=== PATIENT | male | born 2000 | race Hispanic/Latino ===

== ENCOUNTER 2020-08-03 17:42 | Emergency (ER) | payer OTHER, SELFPAY ==
--- NOTE | 2020-08-03 18:19 | EDPHYS ---
Physician Documentation [facility] Name: Jono Hathaway III Age: 20 yrs Sex: Male : 2000 Arrival Date: 08/03/2020 Time: 17:44 Bed 7 Private MD: ED Physician Bennett Menendez HPI: 08/03 18:14 This 20 yrs old Male presents to ER via Ambulatory with complaints of jmm Laceration To Forehead. 18:14 The patient has a laceration related to: facial laceration. Onset: The symptoms/episode jmm began/occurred acutely, 18 hour(s) ago. Associated signs and symptoms: Pertinent negatives: loss of consciousness, numbness distal to injury, suspected foreign body. This is a 20 year old male with no chronic medical conditions that presents to the ED with complaints of laceration to his left eyebrow which occurred after a sparring match at 9 pm last night. Denies LOC, vomiting, seizure like activity. . Historical: - Allergies: 17:49 No Known Allergies; jd3 - Home Meds: 17:49 None [Active]; jd3 - PMHx: 17:49 None; jd3 - PSHx: 17:49 Appendectomy; jd3 - Immunization history:: Adult Immunizations up to date. - Social history:: Smoking status: Patient reports the use of cigarette tobacco products, denies chronic smoking, but will smoke occasionally. ROS: 18:14 Constitutional: Negative for fever, chills, and weight loss, Cardiovascular: Negative jmm for chest pain, palpitations, and edema, Respiratory: Negative for shortness of breath, cough, wheezing, and pleuritic chest pain. 18:14 Skin: Positive for laceration(s). 18:14 Neuro: Negative for loss of consciousness, seizure activity. 18:14 All other systems are negative. Exam: 18:14 Constitutional: This is a well developed, well nourished patient who is awake, alert, jmm and in no acute distress. 18:14 Eyes: EOMI, no conjunctival erythema appreciated ENT: Moist Mucus Membranes Neck: Trachea midline, Supple Chest/axilla: Normal chest wall appearance and motion. Cardiovascular: Regular rate and rhythm. No edema appreciated Respiratory: Normal respirations, no respiratory distress appreciated Abdomen/GI: Non distended, soft Back: Normal ROM Skin: General appearance color normal MS/ Extremity: Moves all extremities, no obvious deformities appreciated, no edema noted to the lower extremities Neuro: Awake and alert, normal gait Psych: Behavior is normal, Mood is normal, Patient is cooperative and pleasant 18:14 Head/face: healing laceration noted to the left eyebrow. 18:14 Head/face: no battles signs, no raccoon eyes. Vital Signs: 17:49 BP 123 / 51; Pulse 67; Resp 17 S; Temp 98.0(O); Pulse Ox 99% on R/A; Weight 86.18 kg jd3 (R); Height 5 ft. 8 in. (172.72 cm) (R); Pain 0/10; 17:49 Body Mass Index 28.89 (86.18 kg, 172.72 cm) jd3 MDM: 18:07 Patient medically screened. [facility] 18:14 Data reviewed: vital signs, nurses notes. Counseling: I had a detailed discussion with simone the patient and/or guardian regarding: the historical points, exam findings, and any diagnostic results supporting the discharge/admit diagnosis, lab results, the need for outpatient follow up. Medical screen evaluation completed. [facility] condition absent. Administered Medications: No medications were administered Disposition: 08/03/20 18:18 Discharged to Home as Medical Screen. Impression: Left Eyebrow laceration. - Condition is Stable. - Discharge Instructions: Nonsutured Laceration Care, Facial Laceration. - Medication Reconciliation Form, Thank You Letter, Antibiotic Education, Prescription Opioid Use form. - Follow up: Private Physician; When: 2 - 3 days; Reason: Recheck today's complaints, Continuance of care, Re-evaluation by your physician. Addendum: 08/05/2020 14:35 Co-signature as Attending Physician, Bennett Menendez MD I agree with the assessment and k dr plan of care. Signatures: Bennett Menendez MD MD kdr Mickail, Joel, PA PA jm Blane Torres RN RN jl7 Morgan Patrick RN RN jd3 Corrections: (The following items were deleted from the chart) 08/03 18:27 18:18 08/03/2020 18:18 Discharged to Home as Medical Screen. Impression: Left Eyebrow jl7 laceration. Condition is Stable. Forms are Medication Reconciliation Form, Thank You Letter, Antibiotic Education, Prescription Opioid Use. Follow up: Private Physician; When: 2 - 3 days; Reason: Recheck today's complaints, Continuance of care, Re-evaluation by your physician. simone
--- NOTE | 2020-08-03 18:19 | ER ---
Nurse's Notes [facility] Name: Jono Hathaway III Age: 20 yrs Sex: Male : 2000 Arrival Date: 08/03/2020 Time: 17:44 Bed 7 Private MD: Diagnosis: Left Eyebrow laceration Presentation: 08/03 17:47 Chief complaint: Patient states: "I was sparing and I got hit pretty good and I think I jd3 need stitches on this cut above my right eye.". Coronavirus screen: At this time, the client does not indicate any symptoms associated with coronavirus-19. Ebola Screen: Patient negative for fever greater than or equal to 101.5 degrees Fahrenheit, and additional compatible Ebola Virus Disease symptoms. Complicating Factors: There are no complicating factors for this patient. Initial Sepsis Screen: Does the patient meet any 2 criteria? No. Patient's initial sepsis screen is negative. Does the patient have a suspected source of infection? No. Patient's initial sepsis screen is negative. Risk Assessment: Do you want to hurt yourself or someone else? Patient reports no desire to harm self or others. Onset of symptoms was August 03, 2020. 17:47 Method Of Arrival: Ambulatory jd3 17:47 Acuity: ROBERTO 3 jd3 Historical: - Allergies: 17:49 No Known Allergies; jd3 - Home Meds: 17:49 None [Active]; jd3 - PMHx: 17:49 None; jd3 - PSHx: 17:49 Appendectomy; jd3 - Immunization history:: Adult Immunizations up to date. - Social history:: Smoking status: Patient reports the use of cigarette tobacco products, denies chronic smoking, but will smoke occasionally. Screenin:00 Abuse screen: Denies threats or abuse. Denies injuries from another. Nutritional jl7 screening: No deficits noted. Tuberculosis screening: No symptoms or risk factors identified. 18:00 Fall Risk None identified. jl7 Assessment: 18:00 General: Appears in no apparent distress. uncomfortable, Behavior is calm, cooperative, jl7 appropriate for age. Pain: Denies pain. Neuro: Level of Consciousness is awake, alert, obeys commands, Oriented to person, place, time, situation. Cardiovascular: Patient's skin is warm and dry. Respiratory: Airway is patent Respiratory effort is even, unlabored, Respiratory pattern is regular, symmetrical. Musculoskeletal: Swelling absent. Injury Description: Laceration sustained to middle aspect of left eyebrow and outer aspect of left eyebrow is clean, 2.6 to 7.5 cm long, not bleeding, was sustained 1 day ago. is bleeding no active bleeding noted. Vital Signs: 17:49 BP 123 / 51; Pulse 67; Resp 17 S; Temp 98.0(O); Pulse Ox 99% on R/A; Weight 86.18 kg jd3 (R); Height 5 ft. 8 in. (172.72 cm) (R); Pain 0/10; 17:49 Body Mass Index 28.89 (86.18 kg, 172.72 cm) jd3 ED Course: 17:44 Patient arrived in ED. ag5 17:48 Triage completed. jd3 17:51 Arm band placed on. jd3 17:55 Blane Torres RN is Primary Nurse. [facility] 18:00 [facility] 18:00 Bennett Menendez MD is Attending Physician. [facility] 18:00 Patient has correct armband on for positive identification. Bed in low position. Call [facility] light in reach. Side rails up X 1. 18:24 No provider procedures requiring assistance completed. Patient did not have IV access [facility] during this emergency room visit. Administered Medications: No medications were administered Outcome: 18:18 Discharge ordered by . [facility] 18:24 Discharged to home ambulatory. [facility] 18:24 Condition: stable 18:24 Discharge instructions given to patient, Instructed on discharge instructions, follow up and referral plans. Demonstrated understanding of instructions, follow-up care. 18:27 Patient left the ED. jl Signatures: Kaleb Fay PA PA jmm Leal, Jahala, RN RN jlMorgan Ron RN RN jd3 Stefanie Dougherty ag5 Corrections: (The following items were deleted from the chart) 17:51 17:49 Pulse 67bpm; Resp 17bpm; Spontaneous; Pulse Ox 99% RA; Temp 98.0F Oral; 86.18 kg jd3 Reported; Height 5 ft. 8 in. Reported; BMI: 28.8; Pain 0/10; jd3
[2020-08-03 18:35] VITALS: BP 123/51; TEMP 98; O2SAT 99
== END 2020-08-03 18:27 | disposition home or self-care (01) ==
LOC: ER 17:42
DX: S01.112A Laceration without foreign body of left eyelid and periocular area, initial encounter (principal); F17.210 Nicotine dependence, cigarettes, uncomplicated
CPT/HCPCS: 99281

== ENCOUNTER 2021-07-12 15:34 | Emergency (ER) | payer SELFPAY ==
[2021-07-12] MEDS ORDERED: LORazepam 2 MG/ML VIAL ONE (16:37)
[2021-07-12] MEDS ORDERED: NA CHLORIDE 0.9% 1,000 ML ONE (16:37)
[2021-07-12 16:59] LABS: BUN Blood Urea Nitrogen 22 mg/dL (7-18); Bicarbonate 26 mmol/L (21-32); Glucose Level 103 mg/dL (74-106); Sodium Level 141 mmol/L (136-145); Troponin (Emerg Dept Use Only) < 0.02 ng/mL (0.0-0.045)
[2021-07-12 17:01] LABS: Hematocrit 44.5 % (39.6-49.0); RBC Red Blood Cell Count 4.84 M/uL (4.33-5.43)
[2021-07-12 17:02] LABS: Absolute Lymphocytes (CBC) 1.6 K/uL (0.7-4.9); Basophils % 0.6 % (0-1.3); Lymphocytes % 25.7 % (15.3-44.8); MPV 7.5 fL (7.6-11.3)
--- NOTE | 2021-07-12 17:38 | EDPHYS ---
Physician Documentation [facility] Name: Jono Hathaway III Age: 21 yrs Sex: Male : 2000 Arrival Date: 07/12/2021 Time: 15:38 Bed 12 Private MD: ED Physician Yeyo Vera HPI: 07/12 16:46 This 21 yrs old Male presents to ER via Ambulatory with complaints of Numbness rn Of Arm, Chest Tightness. 16:46 The patient or guardian reports chest pain that is located primarily in the anterior rn chest wall, left. The pain radiates to the left arm. Associated signs and symptoms: Pertinent positives: palpitations, Pertinent negatives: abdominal pain, cough, shortness of breath, syncope, vomiting. The chest pain is described as Throbbing. Duration: The patient or guardian reports multiple episodes, that are intermittent. Modifying factors: The symptoms are alleviated by nothing. the symptoms are aggravated by nothing. Severity of pain: At its worst the pain was mild in the emergency department the pain is unchanged. The patient has not experienced similar symptoms in the past. The patient has not recently seen a physician. Patient reports did unknown drug yesterday, was under the impression that was taking ecstasy. Patient states later at night felt more like he had taken a stimulant like he feels when he uses cocaine. Reports throbbing headache and chest pain that radiates to left arm. Heartbeat feels very strong. Starting to feel better now but has not gone away completely. No chronic medical problems. No family history of early cardiac problems.. Historical: - Allergies: 15:55 No Known Allergies; ll1 - PMHx: 16:36 Anxiety; vg1 - PSHx: 15:55 Appendectomy; ll1 - Immunization history:: Client reports having NOT received the Covid vaccine. - Social history:: Smoking status: Patient reports the use of cigarette tobacco products, denies chronic smoking, but will smoke occasionally. - Family history:: not pertinent. - Hospitalizations: : No recent hospitalization is reported. ROS: 16:46 Constitutional: Negative for fever, chills, and weight loss, Eyes: Negative for injury, rn pain, redness, and discharge, Neck: Negative for injury, pain, and swelling, Cardiovascular: Negative for edema, Respiratory: Negative for shortness of breath, cough, wheezing, and pleuritic chest pain, Abdomen/GI: Negative for abdominal pain, nausea, vomiting, diarrhea, and constipation, Back: Negative for injury and pain, MS/Extremity: Negative for injury and deformity, Skin: Negative for injury, rash, and discoloration, Neuro: Negative for headache, weakness, numbness, tingling, and seizure. 16:46 All other systems are negative. Exam: 16:46 Constitutional: This is a well developed, well nourished patient who is awake, alert, rn and in no acute distress. Head/Face: Normocephalic, atraumatic. Eyes: Periorbital areas with no swelling, redness, or edema. ENT: No stridor Cardiovascular: Regular rate and rhythm. No pulse deficits. Respiratory: No increased work of breathing, no retractions or nasal flaring. Abdomen/GI: Soft, non-tender Skin: Warm, dry MS/ Extremity: Pulses equal, no cyanosis. Neurovascular intact. Full, normal range of motion. Equal circumference. Neuro: Awake and alert, GCS 15, oriented to person, place, time, and situation. Cranial nerves II-XII grossly intact. Motor strength 5/5 in all extremities. Sensory grossly intact. Cerebellar exam normal. 16:46 ECG was reviewed by the Attending Physician. rn Vital Signs: 15:53 BP 142 / 74; Pulse 80; Resp 16; Temp 97.9; Pulse Ox 100% ; Weight 77.11 kg; Height 5 ll1 ft. 8 in. (172.72 cm); Pain 5/10; 16:06 BP 154 / 83; Pulse 67; Resp 16; Pulse Ox 100% ; vg1 17:08 BP 131 / 66; Pulse 65; Resp 16; Pulse Ox 100% ; vg1 17:51 BP 118 / 67; Pulse 60; Resp 16; Pulse Ox 98% ; vg1 15:53 Body Mass Index 25.85 (77.11 kg, 172.72 cm) ll1 MDM: 15:57 Patient medically screened. rn 17:35 Differential diagnosis: acute pericarditis, anxiety, chest wall pain, costochondritis, rn gastroesophageal reflux disease (GERD), pericarditis, pleurisy, pneumothorax. HEART Score: History: Slightly Suspicious (0), ECG: Normal (0), Age: < or = 45 years (0), Risk Factors: No Risk Factors Known (0), Troponin: < or = 1 x Normal Limit (0), Total Score = 0. The patient's pulmonary embolism risk score was calculated as follows: No Risks (0 Pts) Total Score: 0-2 points. This patient was found to be at low risk for a pulmonary embolism by using the Well's assessment criteria. Data reviewed: vital signs, nurses notes, lab test result(s), EKG, radiologic studies, plain films, and as a result, I will discharge patient. Data interpreted: pvc monitor: rate is 65 beats/min, rhythm is normal sinus rhythm, regular, with no ectopy, Interpretation: normal rate, normal rhythm, Pulse oximetry: on room air is 100 %. Interpretation: normal. Test interpretation: by ED physician or midlevel provider: ECG, plain radiologic studies, Chest x-ray negative for pneumothorax or pneumonia. Mild prominence of interstitium the patient is a smoker. Counseling: I had a detailed discussion with the patient and/or guardian regarding: the historical points, exam findings, and any diagnostic results supporting the discharge/admit diagnosis, lab results, radiology results, the need for outpatient follow up, to return to the emergency department if symptoms worsen or persist or if there are any questions or concerns that arise at home. Counseling: I had a detailed discussion with the patient and/or guardian regarding: smoking cessation. Special discussion: Based on the patient's history, exam, and Dx evaluation, there is no indication for emergent intervention or inpatient Tx. It is understood by the patient/guardian that if the Sx's persist or worsen they need to return immediately for re-evaluation. I discussed with the patient/guardian in detail that at this point there is no indication for admission to the hospital. It is understood, however, that if the symptoms persist or worsen the patient needs to return immediately for re-evaluation. 07/12 16:05 Order name: CBC with Diff; Complete Time: 17:35 rn 07/12 16:05 Order name: Basic Metabolic Panel; Complete Time: 17:35 rn 07/12 16:05 Order name: Troponin (emerg Dept Use Only); Complete Time: 17:35 rn 07/12 16:05 Order name: XRAY Chest (1 view) rn 07/12 16:05 Order name: IV Start; Complete Time: 16:34 rn 07/12 16:05 Order name: EKG; Complete Time: 16:06 rn 07/12 16:05 Order name: EKG - Nurse/Tech; Complete Time: 16:34 rn EC:46 Rate is 57 beats/min. Rhythm is regular. Right axis deviation noted. QRS is positive in rn lead aVF and negative in lead I. CT interval is normal. QRS interval is normal. QT interval is normal. No Q waves. T waves are Normal. No ST changes noted. Clinical impression: Sinus bradycardia. Interpreted by me. Reviewed by me. Administered Medications: 16:30 Drug: NS 0.9% 1000 ml Route: IV; Rate: 1000 ml; Site: right wrist; vg1 17:33 Follow up: IV Status: Completed infusion; IV Intake: 1000ml vg1 16:31 Drug: Ativan (LORazepam) 1 mg Route: IVP; Site: right wrist; vg1 17:09 Follow up: Response: No adverse reaction; Marked relief of symptoms vg1 16:36 Not Given (Physician Discretion): Ativan (LORazepam) 1 mg PO once vg1 Disposition Summary: 07/12/21 17:37 Discharge Ordered Location: Home rn Problem: new rn Symptoms: have improved rn Condition: Stable rn Diagnosis - Chest pain, unspecified rn - Adverse effect of unspecified psychotropic drug rn Followup: rn - With: Private Physician - When: As needed - Reason: Recheck today's complaints, Re-evaluation by your physician Discharge Instructions: - Discharge Summary Sheet rn - Nonspecific Chest Pain, Adult rn Forms: - Medication Reconciliation Form rn - Thank You Letter rn - Antibiotic internet sales representative - Prescription Opioid Use rn - Work release form vg1 Signatures: Dispatcher [employer] Yeyo Ocampo MD MD rn Garcia, Victoria RN RN vg1 Vargas Hardy RN RN ll1 Corrections: (The following items were deleted from the chart) 16:36 15:55 PMHx: None; ll1 vg1
--- NOTE | 2021-07-12 17:38 | ER ---
Nurse's Notes [facility] Name: Jono Hathaway III Age: 21 yrs Sex: Male : 2000 Arrival Date: 07/12/2021 Time: 15:38 Bed 12 Private MD: Diagnosis: Chest pain, unspecified;Adverse effect of unspecified psychotropic drug Presentation: 07/12 15:53 Chief complaint: Patient states: L sided chest tightness and L arm numbness since ll1 midnight. Blurry vision also. Reports doing "X" a couple days ago. Eyes yellowed. Coronavirus screen: Vaccine status: Patient reports being unvaccinated. Client denies travel out of the [place] in the last 14 days. congestion, headache, Client presents with at least one sign or symptom that may indicate coronavirus-19. Standard/surgical mask placed on the client. Ebola Screen: Patient denies travel to an Ebola-affected area in the 21 days before illness onset. Initial Sepsis Screen: Does the patient meet any 2 criteria? No. Patient's initial sepsis screen is negative. Does the patient have a suspected source of infection? No. Patient's initial sepsis screen is negative. Risk Assessment: Do you want to hurt yourself or someone else? Patient reports no desire to harm self or others. Onset of symptoms was July 12, 2021. 15:53 Method Of Arrival: Ambulatory ll1 15:53 Acuity: ROBERTO 3 ll1 15:56 Chief complaint:. ll1 Historical: - Allergies: 15:55 No Known Allergies; ll1 - PMHx: 16:36 Anxiety; vg1 - PSHx: 15:55 Appendectomy; ll1 - Immunization history:: Client reports having NOT received the Covid vaccine. - Social history:: Smoking status: Patient reports the use of cigarette tobacco products, denies chronic smoking, but will smoke occasionally. - Family history:: not pertinent. - Hospitalizations: : No recent hospitalization is reported. Screenin:06 Abuse screen: Denies threats or abuse. Nutritional screening: No deficits noted. vg1 Tuberculosis screening: No symptoms or risk factors identified. Fall Risk No fall in past 12 months (0 pts). No secondary diagnosis (0 pts). IV access (20 points). Ambulatory Aid- None/Bed Rest/Nurse Assist (0 pts). Gait- Normal/Bed Rest/Wheelchair (0 pts) Mental Status- Oriented to own ability (0 pts). Total Mclaughlin Fall Scale indicates No Risk (0-24 pts). Assessment: 16:04 General: Appears in no apparent distress. comfortable, Behavior is calm, cooperative. vg1 Pain: Complains of pain in anterior aspect of left upper chest Pain does not radiate. Pain currently is 5 out of 10 on a pain scale. Pain began 1 day ago. Neuro: Level of Consciousness is awake, alert, obeys commands, Oriented to person, place, time, situation, Reports blurred vision headache numbness left hand finger tips. Cardiovascular: Patient's skin is warm and dry. Respiratory: Airway is patent Respiratory effort is even, unlabored. GI: Patient currently denies nausea, vomiting. : No signs and/or symptoms were reported regarding the genitourinary system. EENT: Eyes appear to have yellow tint in corners. Derm: Skin is intact, is healthy with good turgor. Musculoskeletal: Circulation, motion, and sensation intact. 17:09 Reassessment: Patient appears in no apparent distress at this time. Patient and/or vg1 family updated on plan of care and expected duration. Pain level reassessed. Patient is alert, oriented x 3, equal unlabored respirations, skin warm/dry/pink. Rates pain 2/10 Patient states feeling better. 17:53 Reassessment: Patient appears in no apparent distress at this time. Patient and/or vg1 family updated on plan of care and expected duration. Pain level reassessed. Patient is alert, oriented x 3, equal unlabored respirations, skin warm/dry/pink. Patient denies pain at this time. Patient states feeling better. Vital Signs: 15:53 BP 142 / 74; Pulse 80; Resp 16; Temp 97.9; Pulse Ox 100% ; Weight 77.11 kg; Height 5 ll1 ft. 8 in. (172.72 cm); Pain 5/10; 16:06 BP 154 / 83; Pulse 67; Resp 16; Pulse Ox 100% ; vg1 17:08 BP 131 / 66; Pulse 65; Resp 16; Pulse Ox 100% ; vg1 17:51 BP 118 / 67; Pulse 60; Resp 16; Pulse Ox 98% ; vg1 15:53 Body Mass Index 25.85 (77.11 kg, 172.72 cm) ll1 ED Course: 15:38 Patient arrived in ED. rg4 15:55 Triage completed. ll1 15:56 Arm band placed on Patient placed in an exam room, on a stretcher. ll1 15:57 Yeyo Vera MD is Attending Physician. rn 15:57 Edilia Singer, ALEKS is Primary Nurse. vg1 16:07 Patient has correct armband on for positive identification. Bed in low position. Call vg1 light in reach. Side rails up X 1. property assessment monitor on. Pulse ox on. NIBP on. 16:07 No provider procedures requiring assistance completed. Patient maintains SpO2 vg1 saturation greater than 95% on room air. 16:35 Initial lab(s) drawn, by me, sent to lab. EKG done, by ED staff, reviewed by Edilia Singer RN. Inserted saline lock: 20 gauge in right wrist, using aseptic technique. Blood collected. 17:53 IV discontinued, intact, bleeding controlled, No redness/swelling at site. Pressure vg1 dressing applied. 17:56 XRAY Chest (1 view) In Process Unspecified. EDMS Administered Medications: 16:30 Drug: NS 0.9% 1000 ml Route: IV; Rate: 1000 ml; Site: right wrist; vg1 17:33 Follow up: IV Status: Completed infusion; IV Intake: 1000ml vg1 16:31 Drug: Ativan (LORazepam) 1 mg Route: IVP; Site: right wrist; vg1 17:09 Follow up: Response: No adverse reaction; Marked relief of symptoms vg1 16:36 Not Given (Physician Discretion): Ativan (LORazepam) 1 mg PO once vg1 Intake: 17:33 IV: 1000ml; Total: 1000ml. vg1 Outcome: 17:37 Discharge ordered by . rn 17:53 Discharged to home ambulatory. vg1 17:53 Condition: stable 17:53 Discharge instructions given to patient, Instructed on discharge instructions, follow up and referral plans. Demonstrated understanding of instructions, follow-up care. 17:53 Patient left the ED. vg1 Signatures: Dispatcher [employer] EDMS Yeyo Vera MD MD rn Garcia, Rubi rg4 Edilia Singer RN RN vg1 Vargas Hardy RN RN ll1 Corrections: (The following items were deleted from the chart) 15:56 15:53 Chief complaint: Patient states: L sided chest tightness and L arm numbness since 1 midnight. Blurry vision also. Reports doing "X" a couple days ago. 1 16:36 15:55 PMHx: None; [facility]
[2021-07-12 18:00] VITALS: TEMP 97.9
--- NOTE | 2021-07-12 18:03 | RAD REPORT ---
EXAM DESCRIPTION: Davin Single View07/12/2021 5:56 pm CLINICAL HISTORY: Chest pain COMPARISON: 2010 FINDINGS: The lungs appear clear of acute infiltrate. The heart is normal size IMPRESSION: No acute abnormalities displayed
[2021-07-12 18:04] VITALS: BP 118/67; O2SAT 98
== END 2021-07-12 17:53 | disposition home or self-care (01) ==
LOC: ER 15:34
DX: R07.9 Chest pain, unspecified (principal); T43.95XA Adverse effect of unspecified psychotropic drug, initial encounter
CPT/HCPCS: 36415; 71045; 80048; 84484; 85025; 93005; 96361; 96374; 99285; J7030

== ENCOUNTER 2022-12-14 08:42 | Emergency (ER) | payer SELFPAY ==
--- OUTSIDE RECORDS SUMMARY | 2022-12-14 08:44 | XMS REPORT | Continuity of Care Document ---
:2000 Author Organization [facility] t Address [address] [place] [address] Care Team Providers Name Role Phone Unavailable Unavailable Unavailable Payers Payer Name Policy Type Policy Number Effective Date Expiration Date S ource Problems This patient has no known problems. Allergies, Adverse Reactions, Alerts Allergy Allergy Status Severity Reaction(s) Onset Inactive Treating Comm ents Source Name Type Date Date Clinician No Known DA Active U 2019-0 [facility] No Known DA Active U 2002-10 [facility] Contrast 0-22 [facility]: d s 00 [facility] No Known DA Active U 2002- [facility] No Known DA Active U 2002- [facility] Food 0-22 [facility] d s [facility] No Known DA Active U 2002-10 [facility] Other 0-22 [facility]: d s [facility] Medications This patient has no known medications. Procedures This patient has no known procedures. Results This patient has no known results.
[2022-12-14] MEDS ORDERED: Ringers Lactate 1,000 ML IV ONE (08:56)
[2022-12-14 09:11] LABS: Absolute Lymphocytes (CBC) 2.1 K/uL (0.7-4.9); Hematocrit 45.5 % (39.6-49.0); Lymphocytes % 16.4 % (15.3-44.8); MCV 93.1 fL (80-100); MPV 6.9 fL (7.6-11.3); RBC Red Blood Cell Count 4.88 M/uL (4.33-5.43)
[2022-12-14 09:21] LABS: Protime INR 1.07
[2022-12-14 09:31] LABS: ALT/SGPT 60 U/L (16-61); AST/SGOT 43 U/L (15-37); Albumin 4.4 g/dL (3.4-5.0); Alkaline Phosphatase 58 U/L (45-117); BUN Blood Urea Nitrogen 7 mg/dL (7-18); Bicarbonate 25 mmol/L (21-32); Bilirubin Direct 0.2 mg/dL (0-0.2); Bilirubin Total 0.8 mg/dL (0.2-1.0); Glomerular Filtration Rate 124 ml/min (=/>90); Glucose Level 139 mg/dL (74-106); Potassium 3.9 mmol/L (3.5-5.1); Protein, Total 8.3 g/dL (6.4-8.2); Sodium Level 143 mmol/L (136-145)
--- NOTE | 2022-12-14 09:35 | RAD REPORT ---
EXAM DESCRIPTION: CT - CTHCSPWOC - 12/14/2022 9:18 am CLINICAL HISTORY: Trauma, head and neck injury. fall, head injury COMPARISON: No comparisons TECHNIQUE: Axial 5 mm thick images of the head were obtained. Axial 2 mm thick images of the cervical spine were obtained with sagittal and coronal reconstruction images generated and reviewed. All CT scans are performed using dose optimization technique as appropriate and may include automated exposure control or mA/KV adjustment according to patient size. FINDINGS: CT HEAD WITHOUT CONTRAST: No acute hemorrhage, hydrocephalus or extra-axial collection is identified.No areas of brain edema or midline shift. The paranasal sinuses and mastoids are clear.The calvarium is intact. Small to moderate left frontal scalp hematoma. CT CERVICAL SPINE WITHOUT CONTRAST: No fracture or subluxation.No prevertebral soft tissues swelling is identified. IMPRESSION: No acute intracranial or cervical spine findings.
--- NOTE | 2022-12-14 09:36 | RAD REPORT ---
EXAM DESCRIPTION: CT - CTFB CLINICAL HISTORY: fall, injury Trauma, facial pain and injury. COMPARISON: No comparisons TECHNIQUE: Axial 2 mm thick images of the face were obtained with sagittal and coronal reconstructio n images. All CT scans are performed using dose optimization technique as appropriate and may include automated exposure control or mA/KV adjustment according to patient size. FINDINGS: Moderate nasal bone fracture is present with mild soft tissue swelling.The mandible is int act. The globes and orbital contents are grossly unremarkable.The paranasal sinuses and mastoids are clear . Moderate left frontal scalp hematoma. IMPRESSION: Nasal bone fracture.
[2022-12-14 10:01] LABS: Urine Blood Negative (Negative); Urine Glucose Negative (Negative); Urine Protein Negative (Negative)
[2022-12-14 10:15] LABS: Barbiturates NEGATIVE (NEGATIVE); Benzodiazepines NEGATIVE (NEGATIVE); Cocaine NEGATIVE (NEGATIVE); METHAMPHETAM NEGATIVE (NEGATIVE); Methadone NEGATIVE (NEGATIVE); Opiates NEGATIVE (NEGATIVE); Phencyclidine NEGATIVE (NEGATIVE); THC Cannibis NEGATIVE (NEGATIVE)
[2022-12-14] MEDS ORDERED: TDAP (DIPHTH,PERTUSS(ACELL),TET VAC) 0.5 ML VIAL IMVAC ONE (10:28)
[2022-12-14 11:58] VITALS: BP 118/75; TEMP 97.6; O2SAT 95
--- NOTE | 2022-12-15 13:04 | EKG ---
Test Date: 2022-12-14 Test Time: 07:56:07 [facility] Medical [facility]: [place] MEASUREMENT RESULTS: Intervals: Rate: 94 DE: 148 QRSD: 106 QT: 352 QTc: 440 [place]: P: 58 DE: 148 QRS: 104 T: 20 INTERPRETIVE STATEMENTS: Normal sinus rhythm Rightward axis Borderline ECG Compared to ECG 07/12/2021 16:20:45 Sinus bradycardia no longer present Electronically Signed On 12-15-22 13:02:39 CDT by Guanako Valenzuela
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
== END 2022-12-14 11:03 | disposition home or self-care (01) ==
LOC: ER 08:42
DX: S02.2XXA Fracture of nasal bones, initial encounter for closed fracture (principal); F10.129 Alcohol abuse with intoxication, unspecified; S00.03XA Contusion of scalp, initial encounter; Z23 Encounter for immunization
CPT/HCPCS: 36415; 70450; 70486; 72125; 76377; 80048; 80076; 80307; 81003; 85025; 85610; 85730; 90471; 93005; 99284; G0480; J7120

== ENCOUNTER 2024-12-01 20:46 | Emergency (ER) | payer SELFPAY ==
[2024-12-01] MEDS ORDERED: HYDROCODONE/APAP 7.5/325 MG TAB ONE (21:08)
[2024-12-01] MEDS ORDERED: IBUPROFEN 400 MG TAB ONE (21:08)
--- NOTE | 2024-12-01 21:50 | RAD REPORT ---
EXAM: Knee Right 3 View INDICATION: PAIN COMPARISON: None FINDINGS: No acute fracture. No significant knee effusion. No significant focal degenerative changes. Other: n/a IMPRESSION: No evidence of acute osseous abnormality involving the imaged knee.
--- OUTSIDE RECORDS SUMMARY | 2024-12-01 21:53 | XMS REPORT | Continuity of Care Document ---
Author Name Unknown Address [address] [facility] [address] [place] [address] [facility] thconnect Address [address] [facility] [address] [place] [address] Care Team Providers Care Data Migration Consultant Name Role Phone Unavailable Unavailable Unavailable Payers Payer Name Policy Type Policy Number Effective Date Expirati on Date Source Allergies, Adverse Reactions, Alerts Allergy Name Allergy Type Status Severity Reaction(s) Onset Date Inactive Date Treating Clinician Comments Source No Known Allergie s DA Active U 02-01 00:00: 00 [facility] No Known Contrast Allergie s DA Active U 2002-10 00:00: 00 [facility] No Known Drug Allergie s DA Active U 2002-10 00:00: 00 [facility] No Known Food Allergie s DA Active U 2002-10 00:00: 00 [facility] No Known Other Allergie s DA Active U 2002-10 00:00: 00 [facility] Notes Date/Time Note Provider Source 2019-02-01 12:53:00 [facility] ([facility]) EMERGENCY PROVIDER REPORT REPORT#:[id number] REPORT STATUS: Signed DATE:02/01/19 TIME: 1253 PATIENT: PETER GAO UNIT #: [id number] ROOM/BED: AGE: 18 SEX: M PCP PHYS: No Primary Care Physician SERVICE DT: AUTHOR: Elis Galloway SLIP SHEETER * ALL edits or amendments must be made on the electronic/computer document * HPI-Neck Pain General Confirmed Patient Yes Initial Greet Date/Time 02/01/19 1233 PCP none Presentation Chief Complaint Neck pain, Stiff neck Hx Obtained From Patient Sudden in Onset? Yes Onset Occurred Days ago (2) Caused by Woke up with pain Location Lateral neck L Quality Painful Radiation Does not radiate. Severity: Onset Moderate Severity: Current Moderate Associated with Reports: Decreased range of motion. Denies: Back pain, Decreased sensation, Difficulty breathing, Difficulty swallowing, Fever, Head injury. Context Immunization Status General All up to date Free Text HPI Notes Free Text HPI Notes 18 yo male from [facility] woke with left neck pain 2 days ago. No relief with 1 ibuprofen yesterday. Denies injury or trauma. Review of Systems ROS Statements All systems rev neg except as marked. Focused Review of Systems Constitutional Denies: Chills, Fever. Ears/Nose/Throat Denies: Earache bilat, Sore throat. Musculoskeletal Reports: Neck pain. Skin Denies: Abscess, Erythema, Rash, Swelling. Past Medical History - Adult Stated Complaint NECK PAIN Allergies Coded Allergies: No Known Allergies (02/01/19) Review of Nursing Notes Rev avail, and agree Past Medical History: Reports: Depression/mood disorder. 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 Smoking status for patients 13 years old or older: Current every day smoker Physical Exam Vital Signs Vital Signs First Documented: Result Date Time Pulse Ox 100 02/01 1228 B/P 128/73 02/01 1228 B/P Mean 91 02/01 1228 O2 Delivery Room air 02/01 1228 Temp 36.8 02/01 1228 Pulse 57 02/01 1228 Resp 20 02/01 1228 Last Documented: Result Date Time Pulse Ox 100 02/01 1228 B/P 128/73 02/01 1228 B/P Mean 91 02/01 1228 O2 Delivery Room air 02/01 1228 Temp 36.8 02/01 1228 Pulse 57 02/01 1228 Resp 20 02/01 1228 Review of Vital Signs Reviewed Focused PE General/Const General/Const Awake, Alert, No acute distress, Well appearing, Well developed , Well hydrated, Well nourished, Cooperative MS Head Head Normocephalic Eyes Eyes PERRL, EOMI Ears/Nose/Throat Ears/Nose/Throat Airway patent, Mucous membranes moist, Pharynx NL MS Neck Neck Supple, No meningismus, No adenopathy, No swelling, No midline vertebral tend Meningeal Signs/ROM Decreased extension, Decreased R flex, Rotation decreased R. Neck/Muscle Tenderness Paraspinal L. Resp/Chest Respiratory/Chest Breath sounds NL, Breath sounds = bilat, No respiratory distress Cardiovascular Cardiovascular Heart rate NL, Regular rhythm, Heart sounds NL, Cap refill not delayed, Peripheral circulation NL Neurologic Neurologic Oriented X3, Speech NL, No motor deficits, No sensory deficits, CN II - XII intact, Reflexes equal bilat Interpretation Diagnostics Point of Care Testing Pulse Oximetry Pulse Ox % 100 On: Room air Interpretation Interpreted by me, Pulse oximetry normal Time 1233 Re-Evaluation MDM Re-Evaluation/Progress Re-Evaluation/Progress Time of Re-Eval 1257 Re-Eval Status stable Plan Post Re-Eval Plan discharge Patient Discharge Departure Vital Signs/Condition Vital Signs First Documented: Result Date Time Pulse Ox 100 02/01 1228 B/P 128/73 02/01 1228 B/P Mean 91 02/01 1228 O2 Delivery Room air 02/01 1228 Temp 36.8 02/01 1228 Pulse 57 02/01 1228 Resp 20 02/01 1228 Last Documented: Result Date Time Pulse Ox 100 02/01 1228 B/P 128/73 02/01 1228 B/P Mean 91 02/01 1228 O2 Delivery Room air 02/01 1228 Temp 36.8 02/01 1228 Pulse 57 02/01 1228 Resp 20 02/01 1228 All vital signs available at the time of this entry have been reviewed. Condition Stable Clinical Impression Clinical Impression Primary Impression: Neck muscle strain Secondary Impressions: Torticollis Disposition Decision Discharge )( Discharged to Home Yes )( Time 1257 )( Date 02/01/19 Discharge/Care Plan Counseled Regarding Diagnosis, Prescriptions, Need for follow-up Prescriptions motrin declines prescription for muscle relaxer Prescriptions Reviewed Risks, Benefits, Alternative treatment Discharge Note I have spoken with the patient and/or caregivers. I have explained the patient's condition, diagnoses and treatment plan based on the information available to me at this time. I have answered the patient's and/or caregiver's questions and addressed any concerns. The patient and/or caregivers have as good an understanding of the patient's diagnosis, condition and treatment plan as can be expected at this point. The vital signs have been stable. The patient's condition is stable and appropriate for discharge from the emergency department. The patient will pursue further outpatient evaluation with the primary care physician or other designated or consulting physician as outlined in the discharge instructions. The patient and/or caregivers are agreeable to this plan of care and follow-up instructions have been explained in detail. The patient and/or caregivers have received these instructions in written format and have expressed an understanding of the discharge instructions. The patient and/or caregivers are aware that any significant change in condition or worsening of symptoms should prompt an immediate return to this or the closest emergency department or a call to 911. at 1258 RPT #:[id number] END OF REPORT [facility] 2019-02-01 12:53:00 [facility] ([facility]) EMERGENCY PROVIDER REPORT REPORT#:[id number] REPORT STATUS: Signed DATE:02/01/19 TIME: 1253 PATIENT: PETER GAO UNIT #: [id number] ROOM/BED: AGE: 18 SEX: M PCP PHYS: No Primary or Family Physician SERVICE AUTHOR: Elis Galloway NP * ALL edits or amendments must be made on the electronic/computer document * Elis Galloway 02/01/19 1253: HPI-Neck Pain General Confirmed Patient Yes PCP none Presentation Chief Complaint Neck pain, Stiff neck Hx Obtained From Patient Sudden in Onset? Yes Onset Occurred Days ago (2) Caused by Woke up with pain Location Lateral neck L Quality Painful Radiation Does not radiate. Severity: Onset Moderate Severity: Current Moderate Associated with Reports: Decreased range of motion. Denies: Back pain, Decreased sensation, Difficulty breathing, Difficulty swallowing, Fever, Head injury. Context Immunization Status General All up to date Free Text HPI Notes Free Text HPI Notes 18 [facility] male [facility] woke with left neck pain 2 days ago. No relief with 1 ibuprofen yesterday. Denies injury or trauma. Review of Systems ROS Statements All systems rev neg except as marked. Focused Review of Systems Constitutional Denies: Chills, Fever. Ears/Nose/Throat Denies: Earache bilat, Sore throat. Musculoskeletal Reports: Neck pain. Skin Denies: Abscess, Erythema, Rash, Swelling. Past Medical History - Adult Stated Complaint NECK PAIN Allergies Coded Allergies: No Known Allergies (02/01/19) Review of Nursing Notes Rev avail, and agree Past Medical History: Reports: Depression/mood disorder. 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 Smoking status for patients 13 years old or older: Current every day smoker Physical Exam Vital Signs Vital Signs First Documented: Result Date Time Pulse Ox 100 02/01 1228 B/P 128/73 02/01 1228 B/P Mean 91 02/01 1228 O2 Delivery Room air 02/01 1228 Temp 36.8 02/01 1228 Pulse 57 02/01 1228 Resp 20 02/01 1228 Last Documented: Result Date Time Pulse Ox 100 02/01 1228 B/P 128/73 02/01 1228 B/P Mean 91 02/01 1228 O2 Delivery Room air 02/01 1228 Temp 36.8 02/01 1228 Pulse 57 02/01 1228 Resp 20 02/01 1228 Review of Vital Signs Reviewed Focused PE General/Const General/Const Awake, Alert, No acute distress, Well appearing, Well developed , Well hydrated, Well nourished, Cooperative MS Head Head Normocephalic Eyes Eyes PERRL, EOMI Ears/Nose/Throat Ears/Nose/Throat Airway patent, Mucous membranes moist, Pharynx NL MS Neck Neck Supple, No meningismus, No adenopathy, No swelling, No midline vertebral tend Meningeal Signs/ROM Decreased extension, Decreased R flex, Rotation decreased R. Neck/Muscle Tenderness Paraspinal L. Resp/Chest Respiratory/Chest Breath sounds NL, Breath sounds = bilat, No respiratory distress Cardiovascular Cardiovascular Heart rate NL, Regular rhythm, Heart sounds NL, Cap refill not delayed, Peripheral circulation NL Neurologic Neurologic Oriented X3, Speech NL, No motor deficits, No sensory deficits, CN II - XII intact, Reflexes equal bilat Interpretation Diagnostics Point of Care Testing Pulse Oximetry Pulse Ox % 100 On: Room air Interpretation Interpreted by me, Pulse oximetry normal Time 1233 Re-Evaluation MDM Re-Evaluation/Progress Re-Evaluation/Progress Time of Re-Eval 1257 Re-Eval Status stable Plan Post Re-Eval Plan discharge Patient Discharge Departure Vital Signs/Condition Vital Signs First Documented: Result Date Time Pulse Ox 100 02/01 1228 B/P 128/73 02/01 1228 B/P Mean 91 02/01 1228 O2 Delivery Room air 02/01 1228 Temp 36.8 02/01 1228 Pulse 57 02/01 1228 Resp 20 02/01 1228 Last Documented: Result Date Time Pulse Ox 100 02/01 1228 B/P 128/73 02/01 1228 B/P Mean 91 02/01 1228 O2 Delivery Room air 02/01 1228 Temp 36.8 02/01 1228 Pulse 57 02/01 1228 Resp 20 02/01 1228 All vital signs available at the time of this entry have been reviewed. Condition Stable Clinical Impression Clinical Impression Primary Impression: Neck muscle strain Secondary Impressions: Torticollis Disposition Decision Discharge )( Discharged to Home Yes )( Time 1257 )( Date 02/01/19 Discharge/Care Plan Counseled Regarding Diagnosis, Prescriptions, Need for follow-up Prescriptions motrin declines prescription for muscle relaxer Prescriptions Reviewed Risks, Benefits, Alternative treatment Discharge Note I have spoken with the patient and/or caregivers. I have explained the patient's condition, diagnoses and treatment plan based on the information available to me at this time. I have answered the patient's and/or caregiver's questions and addressed any concerns. The patient and/or caregivers have as good an understanding of the patient's diagnosis, condition and treatment plan as can be expected at this point. The vital signs have been stable. The patient's condition is stable and appropriate for discharge from the emergency department. The patient will pursue further outpatient evaluation with the primary care physician or other designated or consulting physician as outlined in the discharge instructions. The patient and/or caregivers are agreeable to this plan of care and follow-up instructions have been explained in detail. The patient and/or caregivers have received these instructions in written format and have expressed an understanding of the discharge instructions. The patient and/or caregivers are aware that any significant change in condition or worsening of symptoms should prompt an immediate return to this or the closest emergency department or a call to 911. Kourtney Aguayo 02/01/19 1541: HPI-Neck Pain General Initial Greet Date/Time 02/01/19 1233 Physical Exam Vital Signs Vital Signs Patient Discharge Departure Vital Signs/Condition Vital Signs Supervising Physician Note MidLv Saw Pt Alone I have reviewed the PA/SLIP SHEETER's note and plan of care. I was available for consultation as needed at all times during the patient's visit in the emergency department. I agree with the clinical impression, plan and disposition. at 1258 at 1541 RPT #:[id number] END OF REPORT [facility]
--- NOTE | 2024-12-01 22:02 | EDPHYS ---
Physician Documentation [facility] Name: Jono Hathaway III Age: 24 yrs Sex: Male : 2000 Arrival Date: 12/01/2024 Time: 20:46 Bed 7 Private MD: ED Physician Emmett Harrison HPI: 12/01 21:04 This 24 yrs old Male presents to ER via Wheelchair with complaints of Knee sb4 Injury. 21:05 The patient presents with decreased range of motion, an injury, pain, that is acute, sb4 swelling, tenderness. The complaints affect the right knee. Context: The problem was sustained at work, resulted from pushing self up from knee, the patient can partially bear weight, must have assistance, Problem is a result from a previous injury: Yes. Context: Problem is a result from a previous injury:. Onset: The symptoms/episode began/occurred this morning. Modifying factors: The symptoms are alleviated by remaining still, the symptoms are aggravated by movement, weight bearing, bending knee. Treatment prior to arrival includes: no previous treatment. The patient has not experienced similar symptoms in the past. Historical: - Allergies: 20:56 No Known Allergies; jj7 - PMHx: 20:56 Anxiety; jj7 - PSHx: 20:56 Appendectomy; jj7 - Immunization history:: Adult Immunizations up to date. - Infectious Disease History:: Denies. - Social history:: Smoking status: Patient reports the use of cigarette tobacco products, 3-4 CIGS A DAY, Patient uses alcohol, on a daily basis. Patient/guardian denies using street drugs, IV drugs. ROS: 21:06 Constitutional: Negative for fever, chills, and weight loss, sb4 21:06 MS/extremity: Positive for injury or acute deformity, decreased range of motion, pain, swelling, tenderness, of the right knee, 21:06 All other systems are negative, Exam: 21:06 Constitutional: This is a well developed, well nourished patient who is awake, alert, sb4 and in no acute distress. Head/Face: Normocephalic, atraumatic. Eyes: Extra-ocular motions intact. Periorbital areas with no swelling, redness, or edema. ENT: Mucous membranes moist. Respiratory: No increased work of breathing, no retractions or nasal flaring. Skin: Warm, dry with normal turgor. Normal color with no rashes, no lesions, and no evidence of cellulitis. 21:06 Musculoskeletal/extremity: Joints: the right knee displays pain at rest, painful range of motion, swelling, tenderness, Vital Signs: 20:52 BP 152 / 97; Pulse 61; Resp 17; Temp 97.8; Pulse Ox 98% ; Weight 111.13 kg; Height 5 jj7 ft. 8 in. ; Pain 10/10; 21:05 BP 152 / 95; Pulse 82; Resp 16; Temp 98.9; Pulse Ox 100% ; mm11 22:21 BP 141 / 86; Pulse 73; Resp 18; Temp 98.8; Pulse Ox 100% ; Pain 3/10; bm8 20:52 Body Mass Index 37.25 (111.13 kg, 172.72 cm) j 20:52 Pain Scale: Adult j7 22:21 Pain Scale: Adult bm8 [place] Coma Score: 21:14 Eye Response: spontaneous(4). Motor Response: obeys commands(6). Verbal Response: bm8 oriented(5). Total: 15. 22:21 Eye Response: spontaneous(4). Motor Response: obeys commands(6). Verbal Response: bm8 oriented(5). Total: 15. MDM: 20:50 Medical Screening Exam initiated sb4 21:07 Differential diagnosis: sprain, strain, fracture, dislocation. sb4 22:01 Data reviewed: vital signs, nurses notes, radiologic studies, and as a result, I will sb4 discharge patient. Counseling: I had a detailed discussion with the patient and/or guardian regarding the historical points, exam findings, and any diagnostic results supporting the discharge/admit diagnosis, radiology results, the need for outpatient follow up, a orthopedic surgeon, to return to the emergency department if symptoms worsen or persist or if there are any questions or concerns that arise at home. 12/01 21:04 Order name: Knee Right 3 View XRAY; Complete Time: 21:55 sb4 12/01 22:01 Order name: Knee Immobilizer; Complete Time: 22:21 sb4 Administered Medications: 21:14 Drug: Hydrocodone-Acetaminophen PO (7.5 mg-325 mg) 1 tabs PO once Route: PO; dd2 22:21 Follow up: Response: No adverse reaction bm8 21:14 Drug: Ibuprofen PO 800 mg PO once Route: PO; dd2 22:21 Follow up: Response: No adverse reaction bm8 Disposition: 12/02 03:11 Co-signature as Attending Physician, Emmett Harrison MD I agree with the assessment sp4 and plan of care. I reviewed the patient's care provided by the Advanced Practice Provider and agree with the diagnosis and treatment plan. Disposition Summary: 12/01/24 22:02 Discharge Ordered Notes: Location: Home sb4 Problem: new sb4 Symptoms: have improved sb4 Condition: Stable sb4 Diagnosis - Sprain of unspecified site of right knee, initial encounter sb4 Followup: sb4 - With: Andrew Gold MD - When: 1 week - Reason: Further diagnostic work-up, Recheck today's complaints, Re-evaluation by your physician Discharge Instructions: - Discharge Summary Sheet sb4 - Knee Sprain, Adult, [id number] sb4 - Medial Collateral Knee Ligament Sprain sb4 Forms: - Work release form sb4 - Patient Portal Instructions sb4 - Leadership Thank You Letter sb4 Prescriptions: - meloxicam 7.5 mg Oral tablet - take 1 tablet ORAL route daily; 14 tablet; Refills: 0, Product Selection sb4 Permitted Signatures: Dispatcher [employer] Peewee Banda RN RN jjKarla Galicia, PA-C PA-C sb4 Emmett Harrison MD MD sp4 SRINIVASA DHALIWAL RN RN dd2 Fernando Templeton RN bm8 Corrections: (The following items were deleted from the chart) 12/01 21:05 21:05 Knee Right 3 View+RAD.RAD.[email or web address] ordered. EDMS EDMS
--- NOTE | 2024-12-01 22:02 | ER ---
Nurse's Notes [facility] Name: Jono Hathaway III Age: 24 yrs Sex: Male : 2000 Arrival Date: 12/01/2024 Time: 20:46 Bed 7 Private MD: Diagnosis: Sprain of unspecified site of right knee, initial encounter Presentation: 12/01 20:52 Chief complaint: Patient states: WAS ON BOTH HIS KNEES AND WAS GETTING UP PUT ALL HIS jj7 WEIGHT ON HIS RIGHT KNEE GETTING UP AND FELT A POP TODAY. CONTINUOUS RIGHT KNEE PAIN. Coronavirus screen: At this time, the client does not indicate any symptoms associated with coronavirus-19. Ebola Screen: No symptoms or risks identified at this time. Initial Sepsis Screen: Does the patient meet any 2 criteria? No. Patient's initial sepsis screen is negative. Does the patient have a suspected source of infection? No. Patient's initial sepsis screen is negative. Risk Assessment: Do you want to hurt yourself or someone else? Patient reports no desire to harm self or others. Onset of symptoms was December 01, 2024. 20:52 Method Of Arrival: Wheelchair j7 20:52 Acuity: ROBERTO 4 jj7 Triage Assessment: 20:56 General: Appears in no apparent distress. comfortable, Behavior is calm, cooperative, jj7 appropriate for age. Pain: Complains of pain in right knee. Musculoskeletal: Reports pain in right knee. Injury Description: PUT ALL HIS WEIGHT ON HIS RIGHT KNEE WHEN GETTING UP. Historical: - Allergies: 20:56 No Known Allergies; jj7 - PMHx: 20:56 Anxiety; jj7 - PSHx: 20:56 Appendectomy; jj7 - Immunization history:: Adult Immunizations up to date. - Infectious Disease History:: Denies. - Social history:: Smoking status: Patient reports the use of cigarette tobacco products, 3-4 CIGS A DAY, Patient uses alcohol, on a daily basis. Patient/guardian denies using street drugs, IV drugs. Screenin:[address] [facility] ED Fall Risk Assessment (Adult) History of falling in the last 3 months, bm8 including since admission No falls in past 3 months (0 pts) Confusion or Disorientation No (0 pts) Intoxicated or Sedated No (0 pts) Impaired Gait No (0 pts) Mobility Assist Device Used No (0 pt) Altered Elimination No (0 pt) Score/Fall Risk Level 0 - 2 = Low Risk Oriented to surroundings, Maintained a safe environment, Educated pt \T\ family on fall prevention, incl call for assistance when getting out of bed, Assessed \T\ reinforced patient's understanding of fall precautions, Hourly rounding (assess needs \T\ fall precautionary measures) done, Used ambulatory aids as needed (educated on \T\ assisted with), Used gait belt as appropriate. Abuse screen: Denies threats or abuse. Nutritional screening: No deficits noted. Tuberculosis screening: No symptoms or risk factors identified. Assessment: 21:14 General: Appears in no apparent distress. uncomfortable, Behavior is calm, cooperative, bm8 appropriate for age. Pain: Complains of pain in right knee Pain currently is 8 out of 10 on a pain scale. Neuro: No deficits noted. Level of Consciousness is awake, alert, obeys commands, Oriented to person, place, time, situation, Appropriate for age. Cardiovascular: Capillary refill < 3 seconds in bilateral fingers toes Patient's skin is warm and dry. Respiratory: Airway is patent Respiratory effort is even, unlabored, Respiratory pattern is regular, symmetrical, Breath sounds are clear bilaterally. GI: No signs and/or symptoms were reported involving the gastrointestinal system. : No signs and/or symptoms were reported regarding the genitourinary system. EENT: No signs and/or symptoms were reported regarding the EENT system. Derm: No signs and/or symptoms reported regarding the dermatologic system. Musculoskeletal: Range of motion: limited in right knee Swelling present in right knee Reports pain in right knee since 1030 this morning. 22:21 Reassessment: Patient appears in no apparent distress at this time. Patient and/or bm8 family updated on plan of care and expected duration. Pain level reassessed. Patient is alert, oriented x 3, equal unlabored respirations, skin warm/dry/pink. Patient states feeling better. Patient states symptoms have improved. Pain: Pain currently is 3 out of 10 on a pain scale. Musculoskeletal:. Vital Signs: 20:52 BP 152 / 97; Pulse 61; Resp 17; Temp 97.8; Pulse Ox 98% ; Weight 111.13 kg; Height 5 jj7 ft. 8 in. ; Pain 10/10; 21:05 BP 152 / 95; Pulse 82; Resp 16; Temp 98.9; Pulse Ox 100% ; mm11 22:21 BP 141 / 86; Pulse 73; Resp 18; Temp 98.8; Pulse Ox 100% ; Pain 3/10; bm8 20:52 Body Mass Index 37.25 (111.13 kg, 172.72 cm) jj7 20:52 Pain Scale: Adult jj7 22:21 Pain Scale: Adult bm8 [place] Coma Score: 21:14 Eye Response: spontaneous(4). Motor Response: obeys commands(6). Verbal Response: bm8 oriented(5). Total: 15. 22:21 Eye Response: spontaneous(4). Motor Response: obeys commands(6). Verbal Response: bm8 oriented(5). Total: 15. ED Course: 20:48 Patient arrived in ED. mr 20:49 Karla Aquino [facility]-C [facility]. sb4 20:49 Emmett Harrison MD is Attending Physician. sb4 20:56 Triage completed. jj7 20:56 Arm band placed on right wrist. Patient placed in an exam room, on a stretcher. jj7 21:14 Fernando Templeton, RN is Primary Nurse. bm8 21:14 Patient has correct armband on for positive identification. Bed in low position. Call bm8 light in reach. Side rails up X 1. Client placed on continuous cardiac and pulse oximetry monitoring. NIBP monitoring applied. Pulse ox on. NIBP on. Door closed. Noise minimized. Pillow given. Verbal reassurance given. Head of bed elevated. 21:14 No provider procedures requiring assistance completed. Patient did not have IV access bm8 during this emergency room visit. Patient maintains SpO2 saturation greater than 95% on room air. 21:33 Knee Right 3 View XRAY In Process Unspecified. EDMS 22:01 Andrew Gold MD is Referral Physician. sb4 22:21 Provided Education on: post er care. bm8 22:21 Knee immobilizer applied on right knee. bm8 Administered Medications: 21:14 Drug: Hydrocodone-Acetaminophen PO (7.5 mg-325 mg) 1 tabs PO once Route: PO; dd2 22:21 Follow up: Response: No adverse reaction bm8 21:14 Drug: Ibuprofen PO 800 mg PO once Route: PO; dd2 22:21 Follow up: Response: No adverse reaction bm8 Medication: 21:14 VIS not applicable for this client. bm8 Outcome: 22:02 Discharge ordered by . [email or web address] 22:21 Discharged to home ambulatory, with family, bm8 22:21 Condition: stable 22:21 Discharge instructions given to patient, family, Instructed on discharge instructions, follow up and referral plans. no drinking with medication, no driving heavy equipment, medication usage, Demonstrated understanding of instructions, follow-up care, medications, Prescriptions given X 1, 22:23 Patient left the ED. bm8 Signatures: Dispatcher [employer] EDMS Mary Carbone, Reg Reg mr Xavier, Peewee, RN RN Karla Bettencourt PA-Yaya PA-C [email or web address] Fernando Templeton RN RN bm8 SRINIVASA DHALIWAL RN RN dd2 deb kohler [email or web address]
[2024-12-01 22:47] VITALS: O2SAT 100
[2024-12-01 22:49] VITALS: BP 141/86; TEMP 98.8
== END 2024-12-01 22:23 | disposition home or self-care (01) ==
LOC: ER 20:46
DX: S83.91XA Sprain of unspecified site of right knee, initial encounter (principal); Z72.0 Tobacco use
CPT/HCPCS: 99284